=== PATIENT | female | born 1970 | race Caucasian/White ===

== ENCOUNTER → 2017-09-11 | Outpatient (CLI) | payer MEDICAID ==
[~2017-09-11] MED LIST: ASPI-515 PO; CHOL2000 PO; IRON15TA3 PO; MAGN400T7 PO; MULT1TAB10 PO; MYCO360T PO; OMEG-91 PO; OMEP-110 PO; PRED5TAB PO; TACR1CAP4 PO
== END | disposition home or self-care (01) ==
LOC: CFH 08:55
PROVIDERS: ATTEND Obstetrics & Gynecology Maternal & Fetal Medicine
DX: Z12.31 Encounter for screening mammogram for malignant neoplasm of breast (principal)
CPT/HCPCS: 77067

== ENCOUNTER 2020-07-18 10:05 | Emergency (ER) | payer MEDICAID ==
[~2020-07-18] VITALS: Ht 160 cm; Wt 75.0 kg
[~2020-07-18 10:05] MED LIST changes: -MAGN400T7 PO; +MAGN400T9 PO; -TACR1CAP4 PO; +TACR1CAP5 PO
--- NOTE | 2020-07-18 10:33 | NUR ---
xray at bedside
[2020-07-18 10:39] VITALS: BP 105/56
--- NOTE | 2020-07-18 12:02 | NUR ---
CHIEF TECHNICAL OFFICER [id number] UTILIZED TO OBTAIN REGISTRATION INFORMATION AND PROVIDE DISCHARGE INSTRUCTIONS AND ANSWER QUESTIONS. PT AMBULATED FROM ER STEADY GAIT.
== END 2020-07-18 12:04 | disposition home or self-care (01) ==
LOC: ED 11:51
DX: U07.1 COVID-19 (principal); J06.9 Acute upper respiratory infection, unspecified; R50.9 Fever, unspecified; R05 Cough; M79.10 Myalgia, unspecified site
CPT/HCPCS: 71045; 87635; 99284

== ENCOUNTER 2020-07-19 10:36 | Emergency (ER) | payer MEDICAID ==
[~2020-07-19] VITALS: Ht 162.6 cm; Wt 75.0 kg
[2020-07-19] MEDS ORDERED: SODIUM CHLORIDE FLUSH 10ML SYR IVF ONE (11:30)
[2020-07-19] MEDS ORDERED: ONDANSETRON ODT 4 MG ONE (11:49)
[2020-07-19] MEDS ORDERED: ACETAMINOPHEN 500 MG TABLET ONE (11:50)
[2020-07-19 11:53] LABS: BASOPHILS % (AUTO) 0 % (0-1); EOSINOPHILS % (AUTO) 0 % (1-7); LYMPHOCYTES % (AUTO) 9 % (22-44); MEAN CORPUSCULAR HEMOGLOBIN 27.7 pg (27.0-34.8); MEAN CORPUSCULAR HGB CONC 33.5 g/dL (32.4-35.8); MEAN PLATELET VOLUME 7.5 fL (7.4-10.4); MONOCYTES % (AUTO) 7 % (2-9); NEUTROPHILS % (AUTO) 84 % (42-75); PLATELET COUNT 230 x10^3/uL (130-400); RED BLOOD COUNT 4.42 x10^6/uL (3.82-5.3); RED CELL DISTRIBUTION WIDTH 14.2 % (9.6-15.2)
[2020-07-19 11:56] LABS: MD NO
[2020-07-19] MEDS ORDERED: ACETAMINOPHEN 500 MG TABLET PO ONE (12:00)
[2020-07-19] MEDS ORDERED: ONDANSETRON 2MG/ML, 2ML IVPush ONE (12:00)
[2020-07-19 12:06] LABS: ALANINE AMINOTRANSFERASE 24 U/L (12-78); ALBUMIN 3.4 g/dL (3.4-5.0); ANION GAP 8 mmol/L (5-15); CALCIUM 9.3 mg/dL (8.5-10.1); CHLORIDE 105 mmol/L (98-107); CREATININE 1.03 mg/dL (0.55-1.02)
[2020-07-19 12:08] LABS: ALKALINE PHOSPHATASE 103 U/L (45-117); BILIRUBIN,TOTAL 0.6 mg/dL (0.2-1.0)
--- NOTE | 2020-07-19 12:10 | NUR ---
MEDICATED WITH PO TYLENOL AND ZOFRAN FOR FEVER AND NAUSEA PIV PLACED PER ORDER ROOM AIR POX REMAINS 95% ON ROOM AIR
[2020-07-19] MEDS ORDERED: ONDANSETRON ODT 4 MG PO ONE (12:30)
--- NOTE | 2020-07-19 12:58 | NUR ---
REPORT TO JOSE YOO
--- NOTE | 2020-07-19 13:22 | NUR ---
ASSUMED CARE FROM FREDO NAVARRO. PT RESTING IN [facility], MONITORING IN PLACE, [place] AT THIS TIME. PER PT NO NEEDS AT THIS TIME, WILL CONTINUE TO MONITOR.
--- NOTE | 2020-07-19 14:37 | NUR ---
PT RESTING IN [facility], MONITORING IN PLACE, NADN AT THIS TIME, WILL CONTINUE TO MONITOR. PER PT NO NEEDS AT THIS TIME.
--- NOTE | 2020-07-19 14:37 | NUR ---
UPDATED PT'S , FUNMILAYO, UPON PT'S REQUEST. FUNMILAYO CELL PHONE NUMBER - [phone]
[2020-07-19 15:02] LABS: MICROSCOPIC INDICATED
--- NOTE | 2020-07-19 15:51 | NUR ---
PT RESTING IN [facility] AT THIS TIME, MONITORING IN PLACE. PER PT NO NEEDS AT THIS TIME, WILL CONTINUE TO MONITOR.
[2020-07-19] MEDS ORDERED: CEFTRIAXONE PMX 1GM/50ML 50 ML ONE (15:53)
[2020-07-19] MEDS ORDERED: CEFTRIAXONE PMX 1GM/50ML 50 ML IVPB ONE (16:00)
[2020-07-19] MEDS ORDERED: AZITHROMYCIN 500 MG in SODIUM CHLORIDE 0.9% 250 ML IVPB ONE (16:00)
[2020-07-19 17:23] VITALS: BP 100/55
== END 2020-07-19 17:25 | disposition home or self-care (01) ==
LOC: ED 16:20
DX: J15.9 Unspecified bacterial pneumonia (principal); Z20.828 Contact with and (suspected) exposure to other viral communicable diseases; R05 Cough; R50.9 Fever, unspecified; M79.10 Myalgia, unspecified site
CPT/HCPCS: 36415; 71045; 80053; 81001; 83605; 85025; 87040; 87086; 87635; 96365; 96368; 99285; J0456; J0696; J7050; Q0162

== ENCOUNTER 2021-02-19 17:16 | Emergency (ER) | payer SELFPAY ==
[~2021-02-19] VITALS: Ht 160 cm; Wt 76.0 kg
[~2021-02-19 17:16] MED LIST changes: -ASPI-515 PO; +ASPI-963 PO
[2021-02-19 17:25] VITALS: BP 162/86
[2021-02-19] MEDS ORDERED: HYDROcodone/APAP 5/325 TABLET PO ONE (18:30)
[2021-02-19] MEDS ORDERED: HYDROcodone/APAP 5/325 TABLET ONE (18:36)
--- NOTE | 2021-02-19 18:55 | NUR ---
REPORT FROM [place], ALL QUESTIONS ADDRESSED TRANSFER OF CARE AT THIS TIME.
--- NOTE | 2021-02-19 19:23 | NUR ---
Patient/Caregiver given discharge instructions and they have confirmed that they understand the instructions. Patient ambulatory with steady gait. NAD, all questions answered appropriately, denies additional needs at this time. No personal belongings left in room after discharge.
== END 2021-02-19 19:24 | disposition home or self-care (01) ==
LOC: ED 18:30
DX: S16.1XXA Strain of muscle, fascia and tendon at neck level, initial encounter (principal); R07.89 Other chest pain; M79.662 Pain in left lower leg; V49.49XA Driver injured in collision with other motor vehicles in traffic accident, initial encounter; Y93.89 Activity, other specified; Y92.410 Unspecified street and highway as the place of occurrence of the external cause; Y99.8 Other external cause status
CPT/HCPCS: 71045; 99283